=== PATIENT | female | born 1980 | race Caucasian/White ===

== ENCOUNTER 2021-05-16 20:30 | Emergency (ER) | payer BC ==
[~2021-05-16] VITALS: Ht 160 cm; Wt 70.3 kg
[~2021-05-16 20:30] MED LIST: PRILOSEC; TRAM50TA1 PO
[2021-05-16 20:33] VITALS: BP 150/79
--- NOTE | 2021-05-16 20:33 | NUR ---
to bed ambulatory
--- NOTE | 2021-05-16 22:05 | NUR ---
Dr. Che with pt for MSE
[2021-05-16 22:20] VITALS: BP 132/79
--- NOTE | 2021-05-16 22:40 | NUR ---
US at bedside.
--- NOTE | 2021-05-16 23:57 | NUR ---
d/c with VSS. d/c education given. copy of US results given to pt. opportunity to ask questions given and answered. no rx givne.
== END 2021-05-16 23:57 | disposition home or self-care (01) ==
LOC: MED 20:30
DX: R60.0 Localized edema (principal); R00.2 Palpitations
CPT/HCPCS: 93005; 93970; 99284